=== PATIENT | female | born 1990 | race Caucasian/White ===

== ENCOUNTER 2022-07-12 16:32 | Emergency (ER) | payer MEDICAID, SELFPAY ==
[2022-07-12 16:45] VITALS: BP 125/80; PULSE 84; RESP 21; TEMP 36.7; O2SAT 96; BMI 26.5
--- NOTE | 2022-07-12 16:59 | EXP.UTC ---
Discharge Plan Disposition Patient Disposition: Home, Self-Care Condition: Good Prescriptions Prescriptions: New benzonatate 100 mg capsule 100 mg PO TID PRN (Reason: cough) Qty: 30 0RF amoxicillin-pot clavulanate 875-125 mg Tablet 1 tab PO Q12H Qty: 20 0RF prednisone [prednisone] 20 mg tablet 20 mg PO BID 5 Days Qty: 10 0RF guaifenesin [Mucinex] 600 mg tablet extended release 12hr 600 - 1,200 mg PO BID PRN (Reason: cough) Qty: 20 0RF No Action buprenorphine-naloxone 8-2 mg tablet, sublingual 1 tab SUBLINGUAL BID Referrals Follow up/Referrals: Jorge Fragoso [Primary Care Provider] - See instructions Activity Restrictions/Add. Instructions Additional Instructions/Restrictions: Start antibiotic today. Be sure to complete entire prescription even if feeling better Monitor temp. Tylenol every 4 hours as needed and / or ibuprofen every 6 hours as needed ( As long as your primary care physician has told you that it ok to take both. For fever/aches/pains ER if no less than 101 despite Tylenol or Motrin Humidifier/vaporizer or hot steamy shower Mucinex during the day for your cough and cough suppressant only at night. Be sure to drink lots of water. *Tessalon Perles will not cause drowsiness but use at bedtime to help stop cough so that you may get some rest. *Start steroid today. Helps with inflammation therefore, cough and wheezing. Follow directions on the package. Reviewed side effects. Patient reports taking them before. Follow up IMMEDIATELY for new or worsening of symptoms OR no noticeable improvement over the next 48-72 hours. 911 immediately for any life threatening symptoms such as chest pain or difficulty breathing Clinical Impressions Clinical Impression: Sinusitis, Bronchitis Stand Alone Forms Stand Alone Forms: Work/School Release Instructions Patient Instructions: DI for Sinusitis, Sinusitis, Acute Bronchitis Discharge ED Provider: Heena Benjamin [facility] General Stated complaint: cough, sore thraot, runny nose Time Seen by Provider: 07/12/22 16:59 History of Present Illness Provider Complaint: Patient states that she has been having a cough, sore throat, sinus pain and pressure and feels like it is trying to move into her chest for the last week States that it has continued to get worse States that today she was still not feeling well so today she came in to get checked Related Data Home Medications Medication Instructions Recorded Confirmed buprenorphine 8 mg-naloxone 2 mg 1 tab sublingual BID 08/03/17 sublingual tablet Previous Rx's Medication Instructions Recorded amoxicillin 875 mg-potassium 1 tab PO Q12H #20 tabs 07/12/22 clavulanate 125 mg tablet benzonatate 100 mg capsule 100 mg PO TID PRN cough #30 caps 07/12/22 guaifenesin 600 mg tablet, 600 - 1,200 mg PO BID PRN cough 07/12/22 extended release 12 hr (Mucinex) #20 tabs prednisone 20 mg tablet 20 mg PO BID 5 days #10 tabs 07/12/22 Allergies Allergy/AdvReac Type Severity Reaction Status Date / Time No Known Allergies Allergy Verified 08/03/17 09:39 [facility] Disclaimer: The information contained in this section may have been updated after the patient was seen, as this information can be updated by other users. Medical History (Updated 07/12/22 @ 17:08 by Heena Benjamin APRN) Anxiety Asthma Depression Kidney stone Surgical History (Updated 07/12/22 @ 17:00 by Cecile Blount RN) History of hysterectomy Social History Smoking Status: Current every day smoker tobacco type: cigarettes packs per day: 20 alcohol intake: current substance use type: former substance user and opiates current occupational status: unemployed Travel in the last 8 weeks: None household members: children housing: house ROS Obtained: Yes All systems reviewed & no additional complaints except as documented and Yes Systems reviewed as appropriate & no
[2022-07-12 17:00] LABS: UTC Strep Screen (Rapid) Negative (Negative)
[2022-07-12 17:01] VITALS: BP 125/80; PULSE 84; RESP 21; TEMP 36.7; O2SAT 96
== END 2022-07-12 17:12 | disposition home or self-care (01) ==
PROVIDERS: Emergency Provider Nurse Practitioner; PCP Family Medicine
DX: J32.9 Chronic sinusitis, unspecified (principal); J40 Bronchitis, not specified as acute or chronic
CPT/HCPCS: 87880; 99212; 99213; G0463

== ENCOUNTER 2022-07-27 20:07 | Observation (INO) | payer MEDICAID, SELFPAY ==
--- NOTE | 2022-07-27 20:12 | PC.NURSE ---
pt arrived to floor at this time with ems
--- NOTE | 2022-07-27 20:22 | XR_ITS ---
PROCEDURE INFORMATION: Exam: XR Chest Exam date and time: 07/27/2022 8:25 PM Age: 32 years old Clinical indication: Sternal or substernal pain; Additional info: Chest pain TECHNIQUE: Imaging protocol: Radiologic exam of the chest. Views: 1 view. COMPARISON: No relevant prior studies available. FINDINGS: Lungs: Unremarkable. No consolidation. Pleural spaces: Unremarkable. No pleural effusion. No pneumothorax. Heart/Mediastinum: Unremarkable. No cardiomegaly. Bones/joints: Unremarkable. IMPRESSION: No acute findings.
[2022-07-27 20:26] VITALS: PULSE 90
--- NOTE | 2022-07-27 20:26 | EXP.HP ---
History of Present Illness *Admission Date: 07/27/22 *Reason for visit:: Chest Pain *History of present illness: Ms. Hogue is a 32-year-old female who presents as a transfer from [facility] due to NSTEMI. She reports that she was at work today when she started having substernal chest pain associated with shortness of air, she reports that she was concerned that she was having a panic attack so she went to her local ER for evaluation. At the outlying hospital the patient had an EKG that showed Sinus Tachycardia with rate of [address] segment elevation or depression. Cxray showed no acute cardiopulmonary findings. Troponin was elevated at 53. Urine drug screen was positive for THC and Buprenorphine. The patient will be admitted with initial impression: NSTEMI. Cardiology has been consulted, the patient received Brilinta, Aspirin and Lovenox at the outside facility. [facility] Disclaimer: The information contained in this section may have been updated after the patient was seen, as this information can be updated by other users. Medical History (Updated 07/28/22 @ 10:21 by Elizabeth Lopez APRN) Anxiety Asthma Depression Family history of ischemic heart disease Heart murmur Kidney stone NSTEMI (non-ST elevated myocardial infarction) Opioid dependence Tobacco use Urinary tract infection Surgical History History of hysterectomy Family History (Updated 07/27/22 @ 21:58 by Jessica Beard RN) Family history of GERD Family history of stroke Family history of Alzheimer's disease Social History (Updated 07/27/22 @ 21:58 by Jessica Beard RN) Smoking Status: Current every day smoker tobacco type: cigarettes packs per day: 20 alcohol intake: current substance use type: former substance user and opiates current occupational status: employed Travel in the last 8 weeks: None household members: children housing: house Review of Systems Review of Systems Review of systems:: pertinent systems reviewed and negative unless documented below Constitutional Constitutional: Reports system reviewed and no additional complaints, except as documented Eyes Eyes: Reports system reviewed and no additional complaints, except as documented ENT Ears, Nose, Mouth, and Throat: Reports system reviewed and no additional complaints, except as documented *Cardiovascular Cardiovascular: Reports chest pain and Reports dyspnea *Respiratory Respiratory: Reports dyspnea *Gastrointestinal Gastrointestinal: Reports system reviewed and no additional complaints, except as documented *Genitourinary Genitourinary: Reports system reviewed and no additional complaints, except as documented *Musculoskeletal Musculoskeletal: Reports system reviewed and no additional complaints, except as documented Integumentary/Breasts Skin/Breast: Reports system reviewed and no additional complaints, except as documented *Neurologic Neurologic: Reports system reviewed and no additional complaints, except as documented Psychiatric Psychiatric: Reports anxiety Endocrine Endocrine: Reports system reviewed and no additional complaints, except as documented Hematologic/Lymphatic Hematologic/Lymphatic: Reports system reviewed and no additional complaints, except as documented Allergic/Immunologic Allergic/Immunologic: Reports system reviewed and no additional complaints, except as documented Meds Home Medications and Allergies Home Medications Medication Instructions Recorded Confirmed Type buprenorphine 8 mg-naloxone 2 mg 1.5 tab sublingual DAILY OPIOID 08/03/17 07/28/22 History sublingual tablet USE DISORDER albuterol sulfate 90 mcg/actuation 1 inh inhalation QID PRN shortness 07/28/22 Rx aerosol inhaler of breath or wheezing #8.5 grams aspirin 81 mg tablet,delayed 81 mg PO DAILY 30 days #30 tabs 07/28/22 Rx release azithromycin 250 mg tablet See Rx Instructions PO .COMPLEX
[2022-07-27 20:36] VITALS: BMI 25.0
[2022-07-27 21:16] LABS: Coronavirus 19, PCR Not Detected (NotDetected); Influenza A, PCR Not Detected (NotDetected); Influenza B, PCR Not Detected (NotDetected)
[2022-07-27 21:21] LABS: Basophils # 0.1 K/mm3 (0-0.2); Basophils % 1.8 % (0.1-2.0); Eosinophils # 0.1 K/mm3 (0.0-0.4); Eosinophils % 0.9 % (0.1-12.0); Hematocrit 48.5 % (37.0-47.0); Hemoglobin 15.9 g/dL (12.2-16.2); Lymphocytes # 2.8 K/mm3 (0.7-4.5); Lymphocytes % 39.5 % (10-50); Mean Corpuscular HGB Conc 32.8 g/dL (31.8-35.4); Mean Corpuscular Hemoglobin 31.4 pg (27.0-31.2); Mean Corpuscular Volume 95.4 fl (81-99); Mean Platelet Volume 8.2 fl (7.4-10.4); Monocytes # 0.4 K/mm3 (0.1-1.0); Monocytes % 5.9 % (1.7-9.3); Neutrophils # 3.7 K/mm3 (1.8-7.8); Neutrophils % 51.9 % (37.0-80.0); Platelet Count 222 K/mm3 (142-424); Red Blood Count 5.08 M/mm3 (4.20-5.40); Red Cell Distribution Width 15.5 % (11.5-17.5); White Blood Count 7.2 K/mm3 (4.8-10.8)
[2022-07-27 21:26] LABS: Chol/HDL Ratio 2.8 (1-3.5); Cholesterol 147 mg/dl (140-200); HDL Cholesterol 53 mg/dl (40-60); Triglycerides 116 mg/dl (30-150); VLDL Cholesterol 23 mg/dL (0-40)
[2022-07-27 21:27] LABS: Alanine Aminotransferase 38 U/L (12-78); Albumin Level 4.2 g/dl (3.5-5.0); Albumin/Globulin Ratio 1.4 (1.1-1.8); Alkaline Phosphatase 77 U/L (38-126); Aspartate Amino Transferase 35 U/L (14-36); Bilirubin,Total 0.6 mg/dl (0.2-1.3); Blood Urea Nitrogen 10 mg/dl (7-17); Calcium 8.5 mg/dl (8.4-10.2); Carbon Dioxide 26 mmol/L (22.0-30.0); Chloride 107 mmol/L (98-107); Creatinine Clearance Estimated 168 mL/min (50-200); Estimated Glomerular Filt Rate 116 ml/min (>60); GFR (African American) 140 ML/MIN (>60); Glucose 86 mg/dl (74-100); Sodium 136 mmol/L (136-145); Total Protein,Serum 7.2 g/dl (6.3-8.2)
[2022-07-27 21:37] LABS: Direct LDL Cholesterol 82.06 mg/dL (100-129)
[2022-07-27 21:53] LABS: Troponin I 0.27 ng/ml (0.00-0.034)
[2022-07-27 23:36] VITALS: BP 137/69; PULSE 88; RESP 16; TEMP 36.9; O2SAT 99
[2022-07-28] VITALS (20 sets, daily range): BP systolic 103–131; BP diastolic 63–89; PULSE 69–91; RESP 14–18; TEMP 36.7–37; O2SAT 95–100; BMI 25.3
[2022-07-28 00:27] LABS: Troponin I 0.21 ng/ml (0.00-0.034)
[2022-07-28 03:21] LABS: Troponin I 0.17 ng/ml (0.00-0.034)
--- NOTE | 2022-07-28 04:46 | PC.NURSE ---
NO ACUTE CHANGES SINCE ARRIVING TO THE FLOOR. VSS. NO C/O CHEST PAIN OR SOB SINCE ARRIVING TO [facility]. PT IS AMBULATING TO THE BATHROOM INDEPENDENTLY. CALL MENDEZ WITHIN REACH.
--- NOTE | 2022-07-28 06:30 | CA_ITS ---
APPROVED REPORT EXAM: Comprehensive 2D, Doppler, and color-flow Echocardiogram Esthetician: SB Preston, RVS Ht: 5 ft 10 in Wt: 177lbs BSA: 1.98 BP: 120/80 mmHg Indications: CP, NSTEMI, Asthma, Smoker, murmur 2D Dimensions IVSd 1.01 cm LVEF (Visual) 49.60 % PWd 0.93 cm LA Volume 30.30 mL LVDd 4.45 cm LA Volume Index 14.90 mL/m2 (M/F) 16-34 LVDs 3.34 cm Aortic Root 2.98 cm Left Atrium 2.94 cm LVOT 1.97 cm (M/F) 1.5-2.5 M-Mode Dimensions LA Diam 3.30 cm (1.9-4.0) Ao Diam 2.98 cm (2.0-3.7) TAPSE 0.39 (<1.7) LV Diastology E Decel Time 213.00 (160-240 msec) E/A Ratio 2.04 MED E' 9.20 (< 7 cm/sec) MED A' 5.50 cm/s E'/MED E' Ratio 9.28 (>14) LAT E' 10.80 (<10 cm/sec) LAT A' 6.50 cm/s E/LAT E' Ratio 7.91 (>14) Aortic Valve LVOT Max 103.00 (70-110 cm/s) LVOT VTI 19.82 cm AoV Peak Carlos. 110.00 (50-130 cm/s) AO Peak GR. 4.80 mmHg AO Mean GR. 2.40 (<5 mmHg) AO VTI 21.47 (18-25 cm) GIRMA (VTI) 2.81 (2.5-4.5 cm2) Mitral Valve MV A Velocity 42.00 (40-130 cm/s) E/A Ratio 2.04 MV Decel. Time 213.00 (160-240 ms) MV PHT 63.00 ms Pulmonary Valve PV Peak Velocity 60.00 (50-150 cm/s) Tricuspid Valve TR P. Velocity 164.00 cm/s RAP Estimate 10.00 mmHg RVSP 20.70 mmHg Left Ventricle Left atrium is normal size left ventricle is normal size, estimate ejection fraction 55% with no regional wall motion abnormality, diastolic parameters are within normal range. Right Ventricle Right atrium and right ventricular normal size and contractility. Aortic Valve Aortic valve is grossly normal there is no aortic stenosis or aortic insufficiency. Mitral Valve Mitral valve grossly normal, there is trace mitral regurgitation. Tricuspid Valve Tricuspid valve grossly normal, there is trace tricuspid regurgitation, tricuspid regurgitation jet versus inadequate for calculation of the right ventricular systolic pressure. Pulmonic Valve Pulmonic valve is poorly visualized. Great Vessels Aortic root is normal size. Inferior vena cava is normal size with normal inspiratory collapse. Pericardium No significant pericardial effusion noted. Conclusion 1. Normal left ventricular size, preserved left ventricular systolic function, estimated ejection fraction 55% with no regional wall motion abnormality, diastolic parameters are within normal range. 2. Trace mitral and tricuspid regurgitation. 3. No significant pericardial effusion noted. 4. Inferior vena cava is normal size with normal inspiratory collapse. Electronically signed by : Franco Hidalgo MD 07/28/2022 19:10:00
--- NOTE | 2022-07-28 07:19 | ECG_ITS ---
APPROVED REPORT Exam: Resting ECG HR:70 bpm ECG Measurements Heart Rate 70 AXES WA 154 P 55 QRSd 78 QRS 41 QT 359 T 15 QTc 380 Conclusion SINUS RHYTHM NORMAL ECG UNCONFIRMED REPORT Electronically signed by : Darian Torres MD 07/28/2022 20:20:41
--- NOTE | 2022-07-28 07:56 | HMH.PHAINT1 ---
Pharmacy Intervention Comments: MEDICATION RECONCILIATION COMPLETED ON PATIENT USING EXTERNAL FILL HISTORY FROM PHARMACY AND RONNIE REPORT. -PUMA ARNOLD, AMRIKD
--- NOTE | 2022-07-28 09:59 | IR_ITS ---
APPROVED REPORT Patient Location: Inpatient Special Loan Officer: FRANSISCA Lizama RT (R) PROCEDURES Left heart catheterization Left ventriculogram Selective coronary angiogram INDICATION Acute non-ST elevation myocardial infarction Informed consent was obtained prior to the procedure. COMPLICATIONS None Estimated Blood Loss: Less than10 mls TECHNIQUE One percent lidocaine used to anesthetize the right anterior aspect of the wrist. The right radial artery was accessed via the Seldinger technique. A 6 [place] sheath was placed in the right radial artery. 2.5 mg of verapamil, 800 mcg of nitroglycerin, 1mg Lidocaine and 5000 U Heparin were given through the arterial sheath. The papa catheter was also used to perform left heart catheterization, left ventriculogram and selective coronary angiogram. At the end of the procedure the sheath was removed good hemostasis was achieved using Traclet band, patient was transferred to the postop holding area in stable condition. ANGIOGRAPHIC RESULTS The left main artery Normal The left anterior descending artery Normal The circumflex artery Codominant normal The right coronary artery Codominant normal The JIMENEZ ventriculogram reveals Normal 65% The left ventricular end-diastolic pressure 15 mmHg IMPRESSION Normal coronary arteries Normal ejection fraction Borderline LVEDP PLAN 1. Recommend dual antiplatelet therapy for 1 year Electronically signed by : Nadeem Perera MD 07/28/2022 11:43:02
--- NOTE | 2022-07-28 10:17 | EXP.CARD.CON ---
History of Present Illness History of Present Illness Consult date: 07/28/22 Requesting physician: Harmeet Harris Consult reason: chest pain Chief complaint: chest pain History of present illness: This is a 32-year-old white female who presented to the emergency department [facility] with chest pain. The patient was transferred here to [facility] secondary to a non-STEMI. The patient states that she was at work yesterday had sudden onset of what she describes as a panic attack. She states that she gets these occasionally. She states that it starts feeling like her chest is closing in and her chest gets really tight. She states that she went outside and walked around and this improved. Then around lunchtime she had recurrence of the chest tightness. It is associated with shortness of breath, weakness and diaphoresis. There is no radiation of the pain. It stays in the center of her chest. She rates this an 8 out of 10 in intensity. Nothing was really helping to improve the pain. She states that she had a friend at work drive her to the emergency department at [facility] where she was found to have a non-STEMI with an elevated troponin and transferred here to [facility]. She still states that she is having chest pain and tightness intermittently. She does report that she is a half a pack to 1 pack/day smoker. She uses alcohol occasionally. And she does smoke marijuana regularly. She reports that her dad had his first MT in his 30s and at around the age of 50 from complications of heart disease and drug abuse. Her maternal grandmother during open heart surgery for CABG. She denies any fever, chills, nausea, vomiting, diarrhea, PND orthopnea. She denies any lower extremity edema. [facility] Disclaimer: The information contained in this section may have been updated after the patient was seen, as this information can be updated by other users. Medical History (Updated 07/28/22 @ 10:21 by Elizabeth Lopez APRN) Anxiety Asthma Depression Family history of ischemic heart disease Heart murmur Kidney stone NSTEMI (non-ST elevated myocardial infarction) Opioid dependence Tobacco use Urinary tract infection Surgical History History of hysterectomy Family History (Updated 07/27/22 @ 21:58 by Jessica Beard RN) Other Family history of Alzheimer's disease Family history of GERD Family history of stroke Social History (Updated 07/27/22 @ 21:58 by Jessica Beard RN) Smoking Status: Current every day smoker tobacco type: cigarettes packs per day: 20 alcohol intake: current substance use type: former substance user and opiates current occupational status: employed Travel in the last 8 weeks: None household members: children housing: house Review of Systems Review of Systems Review of systems:: pertinent systems reviewed and negative unless documented below Constitutional Constitutional: Reports system reviewed and no additional complaints, except as documented and Reports weakness Eyes Eyes: Reports system reviewed and no additional complaints, except as documented ENT Ears, Nose, Mouth, and Throat: Reports system reviewed and no additional complaints, except as documented *Cardiovascular Cardiovascular: Reports system reviewed and no additional complaints, except as documented, Reports chest pain, Reports chest pain at rest, Reports chest pain with activity, Reports diaphoresis, Reports dyspnea and Reports dyspnea on exertion *Respiratory Respiratory: Reports system reviewed and no additional complaints, except as documented, Reports dyspnea and Reports dyspnea on exertion *Gastrointestinal Gastrointestinal: Reports system reviewed and no additional complaints, except as documented *Genitourinary Genitourinary: Reports system reviewed and no additional complaints, except as documented *Musculoskeletal Muscu
--- NOTE | 2022-07-28 14:33 | EXP.DC.SUM ---
General Admission date:: 07/27/22 Discharge date: 07/28/22 HPI HPI HPI: Ms. Hogue is a 32-year-old female who presents as a transfer from [facility] due to NSTEMI. She reports that she was at work today when she started having substernal chest pain associated with shortness of air, she reports that she was concerned that she was having a panic attack so she went to her local ER for evaluation. At the outlying hospital the patient had an EKG that showed Sinus Tachycardia with rate of [address] segment elevation or depression. Cxray showed no acute cardiopulmonary findings. Troponin was elevated at 53. Urine drug screen was positive for THC and Buprenorphine. The patient will be admitted with initial impression: NSTEMI. Cardiology has been consulted, the patient received Brilinta, Aspirin and Lovenox at the outside facility. Hospital Course Hospital Course Hospital Course: 32-year-old female who presented to the emergency room [facility] with NSTEMI (elevated troponin). Transferred to [facility] for cardiac eval. Cardiology was consulted, appreciate their assistance in care. Noted to have elevated troponins at our institution as well consistent with NSTEMI. Given the finding of NSTEMI and her significant family history, patient taken for left heart catheterization on 07/28/2022. Findings as follows: LHC shows: The left main artery Normal The left anterior descending artery Normal The circumflex artery Codominant normal The right coronary artery Codominant normal The JIMENEZ ventriculogram reveals Normal 65% The left ventricular end-diastolic pressure 15 mmHg IMPRESSION Normal coronary arteries Normal ejection fraction Borderline LVEDP Given clean coronaries but finding of elevated troponin, recommend dual antiplatelet therapy including aspirin 81 mg and Brilinta 90 mg twice a day for the next 12 months per ACC/AHA guidelines. Blood pressure appears well controlled at this time, no adjustments/additional treatments at this time. Recommend continuing buprenorphine per home regimen. Strongly recommended tobacco cessation given family history of coronary artery disease and increased risk for developing coronary artery disease, peripheral vascular disease, numerous cancers. Echocardiogram obtained, preliminary read with normal ejection fraction. Recommend follow-up with cardiology in 2 weeks for further evaluation and adjustment to medications. Medically stable for discharge home. Exam Data for Last 24 hours Vital signs and Labs for Last 24 Hours: Temp Pulse Resp BP Pulse Ox 98.2 F 80 14 104/66 L 99 07/28/22 07:25 02/07/23 14:12 07/28/22 14:12 07/28/22 14:12 07/28/22 14:12 Laboratory Results - last 24 hr 07/27/22 20:40: SARS-CoV-2 (PCR) Not detected, Influenza A Untype (PCR) Not detected, Influenza Type B (PCR) Not detected 07/27/22 20:45: Triglycerides 116, Cholesterol 147, LDL Cholesterol Direct 82.06 L, VLDL Cholesterol 23, HDL Cholesterol 53, Cholesterol/HDL Ratio 2.8 07/27/22 20:45: WBC 7.2, RBC 5.08, Hgb 15.9, Hct 48.5 H, MCV 95.4, MCH 31.4 H, MCHC 32.8, RDW 15.5, Plt Count 222, MPV 8.2, Neut % (Auto) 51.9, Lymph % (Auto) 39.5, [place] % (Auto) 5.9, Eos % (Auto) 0.9, Baso % (Auto) 1.8, Neut # (Auto) 3.7, Lymph # (Auto) 2.8, [place] # (Auto) 0.4, Eos # (Auto) 0.1, Baso # (Auto) 0.1 07/27/22 20:45: Sodium 136, Potassium 4.0, Chloride 107, Carbon Dioxide 26, Anion Gap 7.0, BUN 10, Creatinine 0.60, Estimated Creat Clear 168, Estimated GFR 116, Est GFR ( Amer) 140, Glucose 86, Calcium 8.5, Total Bilirubin 0.6, AST 35, ALT 38, Alkaline Phosphatase 77, Total Protein 7.2, Albumin 4.2, Globulin 3.0, Albumin/Globulin Ratio 1.4 07/27/22 20:45: Troponin I 0.27 H 07/27/22 23:34: Troponin I 0.21 H 07/28/22 02:55: Troponin I 0.17 H I & O for Last 24 hours: Intake & Output 07/25/22 07/26/22 07/27/22 07/28/22 23:59 23:59 23:59 23:59 Output Total 0 / 0 450 / 450 Balance 0 / 0 -450 /
--- NOTE | 2022-07-28 16:55 | PC.NURSE ---
Dr Mcnally and Dr Baker office were both closed when patient was dc'd so unable to schedule follow up appt's. Pt instructed to call both first thing in the am to schedule, she verbalized understanding. Verified with Dr Harris that patient can return to work on 08/03/22, work excuse given.
--- NOTE | 2022-07-28 17:18 | PC.NURSE ---
radialband removed as follows: 1400 2mls air removed 1415 2mls air removed 1430 2mls air removed 1445 2mls air removed 1500 2mls air removed 1515 2mls air removed 1545 radialband removed; telfa and tegaderm placed; no drainage or hematoma noted; pt tolerated well
--- NOTE | 2022-07-29 13:21 | CARE MANAGER ---
Spoke with patient for post-discharge phone interview, no issues noted.
== END 2022-07-28 17:05 | disposition home or self-care (01) ==
PROVIDERS: Internal Medicine; Nurse Practitioner Family; Admitting Provider Family Medicine; PCP Family Medicine; Visit Provider Family Medicine
DX: I21.4 Non-ST elevation (NSTEMI) myocardial infarction (principal); F17.210 Nicotine dependence, cigarettes, uncomplicated; Z82.49 Family history of ischemic heart disease and other diseases of the circulatory system
CPT/HCPCS: G0379; 36415; 71045; 80053; 80061; 84484; 85025; 93005; 93306; 93458; 99152; C1725; C1769; C9803; G0378; J1644; Q9967; U0003; U0005